=== PATIENT | male | born 1990 | race Caucasian/White ===

== ENCOUNTER 2024-12-22 14:27 | Emergency (ER) | payer SELFPAY ==
[2024-12-22 15:13] LABS: Actual Bicarbonate (HCO3v) 21.4 mEq/L (22-28); Analyzer IN Cardio CS ER; Base Excess 0.7 mEq/L (-2 - +2); Calcium, Ionized (venous) 1.07 mmol/L (1.16-1.32); Chloride (VBG) 100 mmol/L (98-106); Critical Notified By: S. Buerger, RRT; Hematocrit-VBG 50 % (42.0-52.0); Hemoglobin (Hb) 17.0 g/dL (13.2-17.3); Potassium (VBG) 3.79 mmol/L (3.70-5.30); Puncture Site Other Site; RapidComm Collect By RN; Sodium 141 mmol/L (133-146)
[2024-12-22 15:17] LABS: #Basophils 0.06 10x3/uL (0.0-0.2); #Eosinophils 0.06 10x3/uL (0.0-0.5); #Monocytes 0.39 10x3/uL (0.0-1.1); #Neutrophils 3.57 10x3/uL (1.5-8.4); %Basophils 1.0 % (0.0-2.0); %Eosinophils 1.0 % (0.0-6.0); %Lymphocytes 31.9 % (18.0-47.0); %Monocytes 6.5 % (0.0-10.0); %Neutrophils 59.3 % (40.0-75.0); Hematocrit 46.0 % (38.8-50.0); Hemoglobin 15.8 g/dL (13.5-17.5); Mean Corpuscular Hemoglobin 30.6 pg (27.0-33.0); Mean Corpuscular Volume 89.0 fL (81.2-95.1); Platelet Count 200 10x3/uL (150-450); Red Blood Cell (RBC) Count 5.17 10x6/uL (4.32-5.72); White Blood Cell (WBC) Count 6.02 10x3/uL (3.5-10.5)
[2024-12-22 15:34] LABS: ALT (SGPT) 235 U/L (Less than 45); AST (SGOT) 226 U/L (11-34); Albumin 5.4 g/dL (3.1-4.5); Alkaline Phosphatase 130 U/L (40-110); Anion Gap 21 mmol/L (10-20); BUN (Urea Nitrogen) 12 mg/dL (8.9-20.6); Bilirubin, Total 0.6 mg/dL (0.3-1.2); Calc. Creatinine Clearance 0 mL/min (70-130); Calcium 9.9 mg/dL (7.8-10.44); Carbon Dioxide 21 mmol/L (22-29); Chloride 101 mmol/L (98-107); Globulin 4.8 g/dL (2.4-3.5); Glucose 112 mg/dL (70-105); Lipase 38 U/L (8-78); Magnesium 1.5 mg/dL (1.6-2.6); Potassium 3.6 mmol/L (3.5-5.1); Sodium 139 mmol/L (136-145)
[2024-12-22 15:36] LABS: Troponin I Less than 0.010 ng/mL (< 0.028)
[2024-12-22] MEDS ORDERED: Magnesium 2 GM/50 ML BAG (IN WATER) ONE (15:59)
== END 2024-12-22 17:00 | disposition home or self-care (01) ==
LOC: CSHERS 14:27
DX: F10.239 Alcohol dependence with withdrawal, unspecified (principal); R79.89 Other specified abnormal findings of blood chemistry; R03.0 Elevated blood-pressure reading, without diagnosis of hypertension; Y90.0 Blood alcohol level of less than 20 mg/100 ml; Z55.6 Problems related to health literacy
CPT/HCPCS: 71045; 80053; 80307; 82805; 83690; 83735; 83880; 84443; 84484; 85025; 85379; 93005; 96365; 96375; J2060; J3411; J3475